=== PATIENT | female | born 1965 | race Caucasian/White ===

== ENCOUNTER 2022-06-02 07:41 | Day surgery (SDC) | payer OTHER ==
[~2022-06-02 07:41] MED LIST: Midazolam 1 MG/ML 2 ML SDV ONE; Propofol 200 MG/20 ML SDV ONE; fentaNYL 100 MCG/2 ML SDV ONE
[2022-06-02] MEDS ORDERED: Lactated Ringers 1,000 ML IV SCH (08:30)
== END 2022-06-02 10:57 | disposition home or self-care (01) ==
LOC: JP.SDS 07:41
PROVIDERS: ATTEND Student in an Organized Health Care Education/Training Program
DX: Z12.11 Encounter for screening for malignant neoplasm of colon (principal); K57.30 Diverticulosis of large intestine without perforation or abscess without bleeding; Z86.010 Personal history of colon polyps; Z91.040 Latex allergy status; Z91.048 Other nonmedicinal substance allergy status
CPT/HCPCS: 45378; J2250; J2704; J3010; J7120